=== PATIENT | female | born 1960 | race Caucasian/White ===

== ENCOUNTER 2016-08-31 14:10 | Emergency (ER) | payer OTHER ==
[~2016-08-31] VITALS: Ht 162.6 cm; Wt 102.0 kg
[2016-08-31 14:13] VITALS: BP 173/96; PULSE 76; RESP 20; TEMP 98; O2SAT 98
--- NOTE | 2016-08-31 14:17 | PD ---
Physical Exam Time Seen by Provider: 14:14 Narrative 56 yo white female presents with L leg pain for four days, seen at [facility], sent here to rule out dvt. VSS. Seen at triage desk, awaiting bed placement. Data Data Last Documented VS Vital Signs Date Time Temp Pulse Resp B/P Pulse Ox O2 Delivery O2 Flow Rate FiO2 08/31/16 14:13 98.0 76 20 173/96 98 Room Air MDM Medical Record Reviewed: Yes Supervised Visit with BAMBI: Yes Adam East Aug 31, 2016 14:17
--- NOTE | 2016-08-31 14:44 | PD ---
HPI Chief Complaint: Musculoskeletal Complaint Time Seen by Provider: 14:20 Travel History International Travel<30 days: No Contact w/Intl Traveler<30days: No Traveled to known affect area: No History of Present Illness HPI The patient is a 56-year-old female who presents emergency department for leg pain. The patient is a 4 day history of left-sided leg pain is located mostly in the left hip and left inguinal/groin region. The pain is worse with abduction and flexion of the left hip. The patient was seen at her physician's office earlier today who referred her to the emergency department for an ultrasound rule out DVT. The patient denies any recent prolonged travel, hospitalizations, surgeries, or history of DVT. The patient also notes an intermittent history of leg cramps the last several months, states she stands for several hours during the day. The pain is worse with movement, slightly alleviated at rest, there is no known trauma to the left lower extremity. The patient denies any associated back pain, nausea, vomiting, abdominal pain, or change in bowel habits. PFSH Social History Tobacco Use: No Allergies-Medications (Allergen,Severity, Reaction): Coded Allergies: Aspirin (Verified Allergy, Severe, 08/31/16) Penicillin (Verified Allergy, Severe, 08/31/16) Reported Meds & Prescriptions Reported Meds & Active Scripts Active No Active Prescriptions or Reported Medications Review of Systems Except as stated in HPI: all other systems reviewed are Neg General / Constitutional: No: Fever Cardiovascular: No: Chest Pain or Discomfort Respiratory: No: Shortness of Breath Gastrointestinal: No: Nausea, Vomiting, Abdominal Pain Musculoskeletal: Positive: Pain, No: Limited ROM, Edema Neurologic: No: Paresthesia, Sensory Disturbance Physical Exam Narrative GENERAL: Awake, alert, pleasant 56-year-old female who appears her stated age and is in no acute respiratory distress. SKIN: Focused skin assessment warm/dry. HEAD: Atraumatic. Normocephalic. EYES: No injection or drainage. NECK: Trachea midline. No JVD. GASTROINTESTINAL: Abdomen soft, non-tender, nondistended. No rebound tenderness. MUSCULOSKELETAL: Patient has mild tenderness to palpation the left inguinal crease, resistance with flexion of the hip and abduction exacerbates the pain. Positive dorsalis pedal pulse. Full range of motion with flexion extension of the hips and knees bilaterally. Negative Homans sign. No tenderness over the left calf or left popliteal fossa. NEUROLOGICAL: Awake and alert. No obvious cranial nerve deficits. Motor grossly within normal limits. Normal speech. Sensation is intact bilaterally on the lower extremities. PSYCHIATRIC: Appropriate mood and affect; insight and judgment normal. Data Data Last Documented VS Vital Signs Date Time Temp Pulse Resp B/P Pulse Ox O2 Delivery O2 Flow Rate FiO2 08/31/16 17:30 68 20 147/77 94 Room Air 08/31/16 14:13 98.0 Orders Us Leg Venous Doppler (08/31/16 ) Basic Metabolic Panel (Bmp) (08/31/16 14:38) Complete Blood Count With Diff (08/31/16 14:38) Pelvis, Ap Only (Routine) (08/31/16 ) Ketorolac Inj (Toradol Inj) (08/31/16 14:45) Labs Laboratory Tests Test 08/31/16 14:50 White Blood Count 8.2 TH/MM3 Red Blood Count 5.02 MIL/MM3 Hemoglobin 14.6 GM/DL Hematocrit 42.4 % Mean Corpuscular Volume 84.6 FL Mean Corpuscular Hemoglobin 29.0 PG Mean Corpuscular Hemoglobin 34.3 % Concent Red Cell Distribution Width 13.3 % Platelet Count 213 TH/MM3 Mean Platelet Volume 7.3 FL Neutrophils (%) (Auto) 71.4 % Lymphocytes (%) (Auto) 20.1 % Monocytes (%) (Auto) 6.5 % Eosinophils (%) (Auto) 1.7 % Basophils (%) (Auto) 0.3 % Neutrophils # (Auto) 5.9 TH/MM3 Lymphocytes # (Auto) 1.7 TH/MM3 Monocytes # (Auto) 0.5 TH/MM3 Eosinophils # (Auto) 0.1 TH/MM3 Basophils # (Auto) 0.0 TH/MM3 CBC Comment DIFF FINAL Differential Comment Sodium Level 139 MEQ/L Potassium Level 4.6 MEQ/L Chloride Level 105 MEQ/L Carbon Dioxide Level 26.2 MEQ/L Anion Gap 8 MEQ/L Blood Urea Nitrogen 14 MG/DL Creatinine 0.60 MG/DL Estimat Glomerular Filtration 104 ML/MIN Rate Random Glucose 96 MG/DL Calcium Level 8.7 MG/DL MDM Medical Decision Making Medical Screen Exam Complete: Yes Emergency Medical Condition: Yes Medical Record Reviewed: Yes Interpretation(s) Laboratory Tests Test 08/31/16 14:50 White Blood Count 8.2 TH/MM3 Red Blood Count 5.02 MIL/MM3 Hemoglobin 14.6 GM/DL Hematocrit 42.4 % Mean Corpuscular Volume 84.6 FL Mean Corpuscular Hemoglobin 29.0 PG Mean Corpuscular Hemoglobin 34.3 % Concent Red Cell Distribution Width 13.3 % Platelet Count 213 TH/MM3 Mean Platelet Volume 7.3 FL Neutrophils (%) (Auto) 71.4 % Lymphocytes (%) (Auto) 20.1 % Monocytes (%) (Auto) 6.5 % Eosinophils (%) (Auto) 1.7 % Basophils (%) (Auto) 0.3 % Neutrophils # (Auto) 5.9 TH/MM3 Lymphocytes # (Auto) 1.7 TH/MM3 Monocytes # (Auto) 0.5 TH/MM3 Eosinophils # (Auto) 0.1 TH/MM3 Basophils # (Auto) 0.0 TH/MM3 CBC Comment DIFF FINAL Differential Comment Sodium Level 139 MEQ/L Potassium Level 4.6 MEQ/L Chloride Level 105 MEQ/L Carbon Dioxide Level 26.2 MEQ/L Anion Gap 8 MEQ/L Blood Urea Nitrogen 14 MG/DL Creatinine 0.60 MG/DL Estimat Glomerular Filtration 104 ML/MIN Rate Random Glucose 96 MG/DL Calcium Level 8.7 MG/DL Last Impressions Pelvis X-Ray 08/31/16 0000 Signed Impressions: Service Date/Time: Wednesday, August 31, 2016 15:18 - CONCLUSION: No acute pelvis abnormality is identified. There is osteoarthritis of the hip joints bilaterally, left worse than right. Kaveh Powell MD Lower Extremity Ultrasound 08/31/16 0000 Signed Impressions: Service Date/Time: Wednesday, August 31, 2016 17:01 - CONCLUSION: Normal examination. Cruz Azar MD Differential Diagnosis Differential diagnosis includes hip strain, hip sprain, DVT, femoral hernia, radiculopathy, pelvic rami fracture, hypokalemia, claudication. Narrative Course Ultrasound of the left lower extremity was ordered. BMP and CBC were sent to lab. Pelvic AP was ordered. The patient was administered Toradol 30 mg intravenously for pain. X-ray reveals osteoarthritis of the hips bilaterally, left greater than the right. Laboratory evaluation is unremarkable. Ultrasound was negative for DVT. The patient will be treated with anti- inflammatories and muscle relaxers. She is advised to follow-up with her primary physician for possible evaluation by physical therapy and if symptoms persist orthopedics. Diagnosis Primary Impression: Hip pain, left Patient Instructions: General Instructions Additional Instructions: Medications as directed. Please provide the patient a copy of her ultrasound results, x-ray results, and lab results at discharge. Follow-up with her primary physician, you may benefit from evaluation by physical therapy and/or orthopedics if symptoms persist. Med/Other Pt SpecificInfo: Prescription(s) given Scripts Orphenadrine ER 12 HR (Orphenadrine CR)100 Mg Ztz227 Mg PO Q12HR #20 TAB Ref 0 Prov:Tank Walton MD 08/31/16 Naproxen (Naprosyn)500 Mg Cex015 Mg PO BID #20 TAB Ref 0 Prov:Tank Walton MD 08/31/16 Disposition: 01 DISCHARGE HOME Condition: Stable Tank Walton MD Aug 31, 2016 14:44
[2016-08-31] MEDS ORDERED: KETOROLAC TROMETHAMINE 30 MG/ML (IVP) VIAL IV PUSH ONE (14:45)
[2016-08-31 15:09] LABS: AUTOMATED NEUTROPHIL # 5.9 TH/MM3 (1.8-7.7); BASOPHIL % 0.3 % (0.0-2.0); EOSINOPHIL # 0.1 TH/MM3 (0-0.4); EOSINOPHIL % 1.7 % (0.0-4.0); HEMATOCRIT 42.4 % (35.0-46.0); HEMO FLAGS DIFF FINAL; LYMPH % 20.1 % (9.0-44.0); LYMPHOCYTE # 1.7 TH/MM3 (1.0-4.8); MEAN CELL VOLUME 84.6 FL (80.0-100.0); MEAN CORPUSCULAR HGB CONC 34.3 % (32.0-36.0); MONO % 6.5 % (0.0-8.0); NEUT % 71.4 % (16.0-70.0); PLATELET COUNT 213 TH/MM3 (150-450); RED BLOOD COUNT 5.02 MIL/MM3 (4.00-5.30); RED CELL DISTRIBUTION WIDTH 13.3 % (11.6-17.2); WHITE BLOOD COUNT 8.2 TH/MM3 (4.0-11.0)
[2016-08-31 15:29] LABS: BICARBONATE 26.2 MEQ/L (21.0-32.0)
[2016-08-31 15:30] VITALS: BP 170/80; PULSE 74; RESP 16; O2SAT 98
--- NOTE | 2016-08-31 15:31 | RADRPT ---
EXAM DATE/TIME: 08/31/2016 15:18 [facility] COMPARISON: No previous studies available for comparison. INDICATIONS : Left side pelvic pain, no known trauma MEDICAL HISTORY : None. SURGICAL HISTORY : None. ENCOUNTER: Initial ACUITY: 1 day PAIN SCORE: 8/10 LOCATION: Bilateral pelvis FINDINGS: AP view of the pelvis demonstrates no fracture or dislocation. There is joint space narrowing of the hip joints bilaterally, left greater than right, with mild subchondral sclerosis and subchondral cyst ic change in the adjacent acetabulum. Sacroiliac joints demonstrate no acute finding. No soft tissue abnormality or radiopaque foreign body is seen. CONCLUSION: No acute pelvis abnormality is identified. There is osteoarthritis of the hip joints bilaterally, lef t worse than right. Kaveh Powell MD on August 31, 2016 at 15:28 Board Certified Radiologist. This report was verified electronically.
[2016-08-31 15:35] LABS: POTASSIUM 4.6 MEQ/L (3.5-5.1)
[2016-08-31 16:30] VITALS: PULSE 64; RESP 15; O2SAT 97
[2016-08-31 17:30] VITALS: BP 147/77; PULSE 68; RESP 20; O2SAT 94
--- NOTE | 2016-08-31 17:51 | RADRPT ---
EXAM DATE/TIME: 08/31/2016 17:01 [facility] COMPARISON: No previous studies available for comparison. INDICATIONS : Left leg pain. MEDICAL HISTORY : Left leg pain. SURGICAL HISTORY : Tubal ligation. ENCOUNTER: Initial ACUITY: 4 - 6 days PAIN SCORE: 1/10 LOCATION: Left leg. TECHNIQUE: Venous ultrasound of the leg was performed from the inguinal ligament to the proximal calf. Real-joel e, color Doppler and spectral tracing, compression and augmentation techniques were used. FINDINGS: There is normal compressibility of the deep venous system from the inguinal region to the proximal ca lf. No echogenic clot is seen in the lumen of the common femoral, femoral, popliteal, and posterior tibial veins. There is a normal response of the venous system to proximal and distal augmentation an d respiration. CONCLUSION: Normal examination. Cruz Azar MD on August 31, 2016 at 17:49 Board Certified Radiologist. This report was verified electronically.
[2016-08-31] MEDS ORDERED: NAPR500 PO (18:19)
[2016-08-31] MEDS ORDERED: ORPH100T99 PO (18:19)
== END 2016-08-31 18:45 | disposition home or self-care (01) ==
LOC: NEPE 14:10
DX: M25.552 Pain in left hip (principal)
CPT/HCPCS: 72170; 80048; 85025; 93971; 96374; 99284; J1885

== ENCOUNTER → 2017-01-14 | Outpatient (CLI) | payer OTHER ==
[~2017-01-14] MED LIST: ASPI81CH CHEW; HYDR-3580 PO; MULT1TAB64 PO; NAPR500 PO; ORPH100T99 PO
[2017-01-14 09:04] LABS: HEMATOCRIT 43.5 % (35.0-46.0); MEAN CELL VOLUME 86.8 FL (80.0-100.0); MEAN CORPUSCULAR HEMOGLOBIN 28.9 PG (27.0-34.0); MEAN CORPUSCULAR HGB CONC 33.4 % (32.0-36.0); PLATELET COUNT 221 TH/MM3 (150-450); RED BLOOD COUNT 5.02 MIL/MM3 (4.00-5.30); RED CELL DISTRIBUTION WIDTH 13.3 % (11.6-17.2); REVIEW FLAG FINAL; WHITE BLOOD COUNT 5.2 TH/MM3 (4.0-11.0)
[2017-01-14 09:08] LABS: APTT (PATIENT) 25.1 SEC (24.3-30.1); PROTHROMBIN TIME - PATIENT 10.6 SEC (9.8-11.6)
[2017-01-14 09:40] LABS: BICARBONATE 28.1 MEQ/L (21.0-32.0); POTASSIUM 4.5 MEQ/L (3.5-5.1)
[2017-01-14 10:27] LABS: BLOOD, URINE NEG (NEG); GLUCOSE,URINE NEG (NEG); KETONE, URINE NEG (NEG); MUCUS URINE FEW /lpf (OCC); NITRITE,URINE NEG (NEG); SQUAMOUS EPITHELIAL CELL URINE <1 /hpf (0-5); URINE COLOR LIGHT-YELLOW (YELLW/STRAW)
[2017-01-14 10:28] LABS: COMMENT (UR) CATH-CULT NOT IND; CULTURE IF INDICATED CATH CULTURE NOT IND
--- NOTE | 2017-01-18 13:08 | EKG ---
Date Performed: 01/14/2017 Time Performed: 09:29:29 PTAGE: 56 years EKG: SINUS BRADYCARDIA RIGHT BUNDLE BRANCH BLOCK ABNORMAL ECG NO PREVIOUS TRACING DOCTOR: Negrita Santos Interpretating Date/Time 01/18/2017 13:05:34
== END ==
LOC: CPRE 08:19
PROVIDERS: ATTEND Orthopaedic Surgery
DX: Z01.810 Encounter for preprocedural cardiovascular examination (principal); Z01.812 Encounter for preprocedural laboratory examination; M16.12 Unilateral primary osteoarthritis, left hip; M79.609 Pain in unspecified limb; R00.1 Bradycardia, unspecified; I45.10 Unspecified right bundle-branch block
CPT/HCPCS: 36415; 80048; 81001; 85027; 85610; 85730; 93005

== ENCOUNTER 2017-01-25 05:20 | Inpatient (IN) | payer OTHER ==
[~2017-01-25] VITALS: Ht 160 cm; Wt 99.1 kg
[~2017-01-25 05:20] MED LIST changes: -ASPI81CH CHEW; -HYDR-3580 PO
[2017-01-25] MEDS ORDERED: SODIUM CHLORID 0.9% 500 ML IV PRN (05:45)
[2017-01-25] MEDS ORDERED: METOPROLOL TARTRATE 25 MG TAB PO PRN (05:45)
[2017-01-25] MEDS ORDERED: LACTATED RINGER'S 1000 ML IV PRN (05:45)
[2017-01-25] MEDS ORDERED: CHLORHEXIDINE GLUCONATE 2 % 1 PACK (2 CLOTHS) TOPICAL PRN (05:45)
[2017-01-25] MEDS ORDERED: CHLORHEXIDINE GLUCONATE 4% SOLN 120 ML BTL TOPICAL SCH (05:45)
[2017-01-25] MEDS ORDERED: INSULIN HUMAN REGULAR 1,000 UNITS/10 ML VIAL SQ PRN (05:45)
[2017-01-25] MEDS ORDERED: POVIDONE IODINE 5% (ANTISEPSIS KIT) 4 APPLICATIONS EACH NARE PRN (05:45)
[2017-01-25] MEDS ORDERED: GENTAMICIN SULFATE 80 MG/2 ML VIAL ONE (06:03)
[2017-01-25] MEDS ORDERED: ACETAMINOPHEN 1000 MG/100 ML 100 ML IV ONE (06:30)
[2017-01-25] MEDS ORDERED: MIDAZOLAM HCL 2 MG/2 ML VIAL ONE (06:30)
[2017-01-25] MEDS ORDERED: DEXAMETHASONE SOD PHOS 4 MG/ML VIAL ONE (06:31)
[2017-01-25] MEDS ORDERED: FAMOTIDINE 20 MG/2 ML VIAL ONE (06:31)
[2017-01-25] MEDS ORDERED: ceFAZolin 2 GM PREMIX 50 ML ONE (06:31)
[2017-01-25] MEDS ORDERED: EXPAREL PERI-ARTICULAR INJECTION (TOTAL VOL. 60 ML) P-ARTICULR SCH ×2 (07:00)
[2017-01-25] MEDS ORDERED: TRANEXAMIC ACID IV SCH ×2 (07:00→10:00)
[2017-01-25] MEDS ORDERED: SODIUM CHLORIDE 0.9% IV SCH ×2 (07:00→10:00)
--- NOTE | 2017-01-25 09:29 | HHI.FF ---
Face to Face Verification Diagnosis: (1) Status post total replacement of left hip Physical Therapy Hip: Total hip, Protocol: Left, Posterior hip precautions, Progress to weight bearing Canvas Knee Splint: When in bed & 2 pillows btw thighs Left LE Weight Bearing: WB as tolerated Left LE Range of Motion: Active ROM Nursing Nursing: Dressing changes Dressing Changes: Daily dressing change, Coverderm/Primapore Additional Instructions Remove steristrips on postop day 14. I have seen patient Kayli Ortiz on 01/25/17. My clinical findings support the need for the requested home health care services because: Ltd mobility - disease progression Limited ability to care for self High risk of falls I certify that my clinical findings support that this patient is homebound because: Post-op weakness Unsteady gait/balance Unsafe to leave home unassisted Miguel Friend MD (Charles) Jan 25, 2017 09:29
[2017-01-25] MEDS ORDERED: SODIUM CHLORIDE 0.9% FLUSH 5 ML FLUSH IVF PRN (09:30)
[2017-01-25] MEDS ORDERED: ZOLPIDEM TARTRATE 5 MG TAB PO PRN (09:30)
[2017-01-25] MEDS ORDERED: ACETAMINOPHEN/HYDROcodone 325 MG/7.5 MG TAB PO PRN (09:30)
[2017-01-25] MEDS ORDERED: MAGNESIUM HYDROXIDE SUSP 30 ML CUP PO PRN (09:30)
[2017-01-25] MEDS ORDERED: ONDANSETRON HCL 4 MG/2 ML VIAL IVP PRN (09:30)
[2017-01-25] MEDS ORDERED: BISACODYL 10 MG SUPP RECTAL PRN (09:30)
[2017-01-25] MEDS ORDERED: TRANEXAMIC ACID INJ 0 MG in SODIUM CHLORIDE 0.9% INJ 100 ML IV SCH (09:30)
[2017-01-25] MEDS ORDERED: MORPHINE SULFATE 8 MG/ML INJ IV PUSH PRN (09:30)
[2017-01-25] MEDS ORDERED: Post-op Orders (for Pharmacy) MISC XX ONE (09:30)
[2017-01-25] MEDS ORDERED: *morphine SULFATE 8 MG/ML PERIprocedure ONLY ONE ×2 (09:50→10:25)
[2017-01-25] MEDS: LACTATED RINGER'S 1000 ML INJ 1,000 ML IV SCH ×2 (10:10→21:31)
--- NOTE | 2017-01-25 11:17 | MP ---
cc: Miguel LAM. DATE OF SURGERY 01/25/2017 PREOPERATIVE DIAGNOSIS Primary osteoarthritis left hip. POSTOPERATIVE DIAGNOSIS Primary osteoarthritis left hip. OPERATION PERFORMED Left total hip arthroplasty with [place] prosthesis. SURGEON Miguel Lam MD ANESTHESIA General endotracheal with supplemental local. INDICATIONS AND FINDINGS This 56-year-old woman has had over five years of left hip pain which has progressively worsened over the past four months to the point that she is unable to continue doing activities of daily living functionally. She has a limited distance ambulating and requires external support. She has pain when moving the hip and has difficulty with activities of daily living. She has not responded to conservative measures including anti-inflammatory agents, analgesics, exercise, ambulatory aids and weight loss. Physical findings showed limited range of motion with tenderness on motion. She walks with an antalgic gait. X-rays show loss of articular cartilage to [id number] with degenerative cysts and osteophytes. Operative findings showed severe osteoarthritis with loss of articular cartilage to expose subchondral bone with subchondral sclerosis on the acetabular and femoral side. There are osteophytes as well. PROSTHESIS USED Liang prosthesis with the femoral component being an Accolade II size 132 neck angle x size 5 with a Biolox Delta ceramic head size 32 and -4 mm neck length. The acetabular component was a Tritanium Cluster Cup with a single additional screw, size 48 mm in diameter. The liner was a Trident X3 polyethylene liner, 0-degree, 32-mm inner diameter. PROCEDURE The patient was brought to the clean-air operating suite and a general endotracheal anesthetic was administered. She was placed in a lateral position on a Biomet lateral positioner with the left hip up. She was then prepped with alcohol, Hibiclens and Chloraprep and draped in the usual manner with the hip draped free. An appropriate time-out procedure was carried out. Local anesthesia was administered in the incision site with Exparel. The incision was then made from the posterior lateral tip of the greater trochanter superiorly and proximally approximately 15 cm. The incision was deepened through the subcutaneous tissues to the gluteus fascia which was exposed and longitudinally incised in line with its fibers. Dissection was then carried out through this and a Charnley retractor inserted. The piriformis was identified and it along with the obturator were released from the posterior aspect of the greater trochanter and reflected. A capsular incision was then made from the acetabulum down to the femoral neck and across and down the femoral neck without disturbing the remaining external rotators. The hip was dislocated. The femoral neck was transected. The femoral head was removed. Femoral preparation was initiated with a box osteotome, followed by a curet for identifying the canal. Reaming was then started with a size 0 reamer and went up to a size 5. The size 5 was seated appropriately. Calcar planing was completed. The hip was irrigated. The hip was repositioned and attention directed to the acetabulum. Retractors were placed about the acetabulum. The soft tissues were removed. Reaming started at 43 mm and went in 1-mm increments to 48 mm, deepening to the teardrop. A size 48 mm trial prosthesis was tried first at 47 mm reaming but subsequently to 48 mm reaming. A 48 mm titanium cluster cup was chosen and was impacted into place in appropriate position. A single screw was placed into this. The liner was inserted. Attention was then directed back to the femur. The femoral trial was used for a size 0, followed by a size -4 which appeared to be more appropriate. Further broaching was carried out and this still appeared appropriate. Stability was excellent. The femoral trial and broach were removed. The femoral prosthesis as noted above was impacted into place and seated appropriately. Trial reduction was again carried out with a -4 mm neck length. The trunnion was then cleaned and dried. Prior to completion of this the capsule around the acetabulum and femur were anesthetized with Marcaine with Exparel. The femoral head, which was a Biolox Delta head was placed onto the cleaned and dried trunnion of the femoral component and seated appropriately. The hip was reduced. It was taken through a range of motion which showed excellent stability and mobility. There was no pistoning. The leg lengths appeared appropriate. After the remainder of the Exparel was injected, wound closure then commenced doing a closure of the capsule using a #1 Vicryl running locked suture. The piriformis and obturator conjoined tendon was then repaired along with capsule to the posterior aspect of the greater trochanter with transosseous sutures. This was reinforced at the edge with further sutures. The suture was #1 Vicryl with a Krackow technique. The sciatic nerve was identified again at the conclusion of the procedure. It had been protected throughout the procedure. The gluteus fascia was then repaired with #1 Vicryl interrupted [id number] sutures. The subcutaneous tissues were closed with 2-0 Vicryl interrupted simple sutures with buried knots. The skin was closed with a continuous subcuticular closure of 4-0 Monocryl. The wound was dressed with Steri-Strips followed by dry dressing, ABD pad and Medipore compression dressing. The patient was then placed into the knee immobilizer and transferred to the recovery room in satisfactory condition having tolerated the procedure well. COUNTS Counts were correct. SPECIMEN None. ESTIMATED BLOOD LOSS 350 mL. MD COOPER Britton/RADHA /9:39 AM /10:57 AM
--- NOTE | 2017-01-25 11:24 | RADRPT ---
EXAM DATE/TIME: 01/25/2017 09:46 [facility] COMPARISON: No previous studies available for comparison. INDICATIONS : Total left hip replacement. MEDICAL HISTORY : None. SURGICAL HISTORY : Tubal ligation. ENCOUNTER: Initial ACUITY: 1 day PAIN SCORE: 3/10 LOCATION: Left Hip FINDINGS: Changes of left hip arthroplasty now noted, appears intact and normally aligned. CONCLUSION: Total left hip arthroplasty with expected radiographic appearance. No evidence of an acute complicati on. Kaveh Sierra MD on January 25, 2017 at 11:21 Board Certified Radiologist. This report was verified electronically.
[2017-01-25 12:00] VITALS: BP 106/67; PULSE 82; RESP 20; TEMP 96.8; O2SAT 96
[2017-01-25] MEDS ORDERED: ePHEDrine/NS 25 MG/5 ML SYR IV ONE (12:00)
[2017-01-25] MEDS ORDERED: NEOSTIGMINE 3 MG/3 ML SYR IV ONE (12:00)
[2017-01-25] MEDS ORDERED: PROPOFOL 200 MG/20 ML AMP IV ONE (12:00)
[2017-01-25] MEDS ORDERED: ONDANSETRON HCL 4 MG/2 ML VIAL IV PUSH ONE (12:00)
[2017-01-25] MEDS ORDERED: LACTATED RINGER'S 1000 ML INJ 1,000 ML IV ONE (12:00)
[2017-01-25 12:22] VITALS: O2SAT 98
--- NOTE | 2017-01-25 13:02 | PD.CONS ---
HPI Service [facility] Consult Requested By DR Miguel LAM ORTHO Reason for Consult MEDICAL MANAGEMENT Primary Care Physician Carmen Crews DO Diagnoses: (1) Status post total replacement of left hip (2) Primary osteoarthritis of left hip (3) Hip pain, left History of Present Illness 46-year-old female. Who underwent left total hip replacement today for severe osteoarthritis of the left hip with Dr. Lam. Seen postoperatively tolerated the procedure well. Patient's past medical history is significant for osteoarthritis had a history of tobacco abuse in the past as well as history of tubal ligation. Is currently awake and alert and denying any issues at this moment other than some pain in her left hip Review of Systems Constitutional: DENIES: Diaphoretic episodes, Fatigue, Fever, Weight gain, Weight loss, Chills, Dizziness Endocrine: DENIES: Heat/cold intolerance Eyes: DENIES: Blurred vision, Diplopia, Eye inflammation, Eye pain, Vision loss Ears, nose, mouth, throat: DENIES: Tinnitus, Hearing loss, Vertigo, Nasal discharge Respiratory: DENIES: Apneas, Cough, Snoring, Wheezing Cardiovascular: DENIES: Chest pain, Palpitations, Syncope, Dyspnea on Exertion Gastrointestinal: DENIES: Abdominal pain, Black stools, Bloody stools, Constipation Genitourinary: DENIES: Abnormal vaginal bleeding, Dysmenorrhea Musculoskeletal: COMPLAINS OF: Joint pain, DENIES: Muscle aches, Stiffness, Joint Swelling, Back pain Integumentary: DENIES: Abnormal pigmentation, Pruritus Hematologic/lymphatic: DENIES: Bruising, Lymphadenopathy Immunologic/allergic: DENIES: Eczema, Urticaria Neurologic: DENIES: Abnormal gait, Headache, Localized weakness, Paresthesias Psychiatric: DENIES: Anxiety, Confusion Past Family Social History Allergies: Coded Allergies: aspirin (Unverified Allergy, Severe, 01/25/17) penicillin G (Unverified Allergy, Severe, 01/25/17) Past Medical History OSTEOARTHRITIS Past Surgical History TUBAL LIGATION Reported Medications Reported Meds & Active Scripts Active Orphenadrine CR (Orphenadrine Citrate) 100 Mg Tab 100 Mg PO Q12HR Naprosyn (Naproxen) 500 Mg Tab 500 Mg PO BID Reported Centrum Silver Men Tablet (Multivit-Min/FA/Lycopen/Lutein) 1 Each Tablet 1 Tab PO DAILY Active Ordered Medications Current Medications Lactated Ringer's 1,000 ml @ 30 mls/hr Q24H PRN IV SEE LABEL COMMENTS Last administered on 01/25/17 05:50; Start 01/25/17 at 05:45; Stop 01/25/17 at 10:07; Status DC Sodium Chloride 500 ml @ 30 mls/hr [id number] PRN IV SEE LABEL COMMENTS; Start 01/25/17 at 05:45; Stop 01/25/17 at 10:07; Status DC Metoprolol Tartrate (Lopressor) 25 mg [employer]OMC[employer] SCR[employer]ER PRN PO SEE LABEL COMMENTS; Start 01/25/17 at 05:45; Stop 01/28/17 at 05:44 Povidone Iodine (Betadine 5% Antisepsis Kit) 1 applic [employer]OMC[employer] SCRAPER PRN EACH NARE SEE LABEL COMMENTS Last administered on 01/25/17 06:05; Start 01/25/17 at 05:45; Stop 01/28/17 at 05:44 Chlorhexidine Gluconate (Chlorhexidine 2% Cloth) 3 pack [employer]OM[employer] SCR[employer]ER PRN TOPICAL SEE LABEL COMMENTS Last administered on 01/25/17 05:30; Start 01/25/17 at 05:45; Stop 01/28/17 at 05:44 Insulin Human Regular (NovoLIN R INJ) See Protocol Table ... BR[employer]OMC[employer] SCRAPER PRN SQ SEE PROTOCOL TABLE; Start 01/25/17 at 05:45; Stop 01/28/17 at 05:44 Chlorhexidine Gluconate (Hibiclens 4% Top Soln) 1 applic ONCE TOPICAL ; Start at 05:45; Stop 01/28/17 at 05:44 Tranexamic Acid 991 mg/Sodium Chloride 109.91 ml @ 200 mls/ hr ONCE IV Last administered on 01/25/17 06:59; Start 01/25/17 at 07:00; Stop 01/25/17 at 13:00 Tranexamic Acid 991 mg/Sodium Chloride 109.91 ml @ 200 mls/ hr ONCE IV Last administered on 01/25/17 10:17; Start 01/25/17 at 10:00; Stop 01/25/17 at 11:00; Status DC Bupivacaine Liposome 20 ml/ Sodium Chloride 60 ml @ 120 mls/hr ONCE P-ARTICULR ; Start 01/25/17 at 07:00; Stop 01/25/17 at 13:00 Gentamicin Sulfate (Gentamicin Inj) 240 mg STK-MED ONCE .ROUTE Last administered on 01/25/17 07:35; Start 01/25/17 at 06:03; Stop 01/25/17 at 06:04; Status DC Acetaminophen 100 ml @ As Directed STK-MED ONCE IV ; Start 01/25/17 at 06:30; Stop 01/25/17 at 06:31; Status DC Midazolam HCl (Versed Inj) 2 mg STK-MED ONCE .ROUTE ; Start 01/25/17 at 06:30; Stop 01/25/17 at 06:31; Status DC Fentanyl Citrate (fentaNYL INJ) 300 mcg STK-MED ONCE .ROUTE ; Start 01/25/17 at 06:30; Stop 01/25/17 at 06:31; Status DC Famotidine (Pepcid Inj) 20 mg STK-MED ONCE .ROUTE ; Start 01/25/17 at 06:31; Stop 01/25/17 at 06:32; Status DC Dexamethasone Sodium Phosphate (Decadron Inj) 4 mg STK-MED ONCE .ROUTE ; Start 01/25/17 at 06:31; Stop 01/25/17 at 06:32; Status DC Cefazolin Sodium/ Dextrose 50 ml @ As Directed STK-MED ONCE .ROUTE Last administered on 01/25/17 06:59; Start 01/25/17 at 06:31; Stop 01/25/17 at 06:32; Status DC Fentanyl Citrate (fentaNYL INJ) 100 mcg STK-MED ONCE .ROUTE ; Start 01/25/17 at 08:45; Stop 01/25/17 at 08:46; Status DC Lactated Ringer's 1,000 ml @ 80 mls/hr [id number] IV Last administered on 10:10; Start 01/25/17 at 09:20 IV Flush (NS Flush) 2 ml UNSCH PRN IVF FLUSH AFTER USING IV ACCESS; Start at 09:30 IV Flush (NS Flush) 2 ml BID IVF ; Start 01/25/17 at 21:00 Cefazolin Sodium 1000 mg/Sodium Chloride 100 ml @ 200 mls/hr Q6H IV ; Start 01/25/17 at 13:00; Stop 01/26/17 at 01:29 Miscellaneous Information (Post-op Orders (for Pharmacy)) STAT ONCE XX ; Start 01/25/17 at 09:30; Stop 01/25/17 at 09:31; Status UNV Morphine Sulfate (Morphine Inj) 4 mg Q3H PRN IV PUSH BREAKTHROUGH PAIN; Start 01/25/17 at 09:30; Status UNV Acetaminophen/ Hydrocodone Bitart ([place] 7.5-325 Mg) 1 tab Q4H PRN PO PAIN LESS THAN 5 ON SCALE; Start 01/25/17 at 09:30 Acetaminophen/ Hydrocodone Bitart ([place] 7.5-325 Mg) 2 tab Q4H PRN PO PAIN SCALE 5 TO 10; Start 01/25/17 at 09:30; Status UNV Ketorolac Tromethamine (Toradol Inj) 15 mg Q6H IVP ; Start 01/25/17 at 09:30; Stop 01/27/17 at 03:31; Status UNV Tranexamic Acid / Sodium Chloride 100 ml @ 200 mls/hr UNSCH IV ; Start 01/25/17 at 09:30; Stop 01/25/17 at 10:07; Status DC Ondansetron HCl (Zofran Inj) 4 mg Q6H PRN IVP NAUSEA OR VOMITING; Start at 09:30; Status UNV Docusate Sodium (Colace) 100 mg BID PO ; Start 01/26/17 at 21:00 Zolpidem Tartrate (Ambien) 5 mg HS PRN PO SLEEP; Start 01/25/17 at 09:30 Bisacodyl (Dulcolax Supp) 10 mg DAILY PRN [place] CONSTIPATION; Start 01/25/17 at 09: 30; Status UNV Magnesium Hydroxide (Milk Of Magnesia Liq) 30 ml DAILY PRN PO MILD TO MODERATE CONSTIPATION; Start 01/25/17 at 09:30 Aspirin (Ecotrin Ec) 81 mg BID PO ; Start 01/25/17 at 21:00; Status UNV Orphenadrine Citrate (Norflex Cr) 100 mg Q12HR PO ; Start 01/25/17 at 21:00; Status UNV Non-Formulary Medication 1 tab DAILY PO ; Start 01/26/17 at 09:00; Status UNV Morphine Sulfate (*morphine INJ PERIprocedure ONLY) 8 mg STK-MED ONCE .ROUTE Last administered on 01/25/17 09:51; Start 01/25/17 at 09:50; Stop 01/25/17 at 09: 51; Status DC Morphine Sulfate (*morphine INJ PERIprocedure ONLY) 8 mg STK-MED ONCE .ROUTE Last administered on 01/25/17 10:26; Start 01/25/17 at 10:25; Stop 01/25/17 at 10: 26; Status DC Family History Diabetes hypertension and heart disease Social History hISTORY OF TOBACCO QUIT OVER 30 YEARS AGO OCCASIONAL ALCOHOLIC BEVERAGE Denies any illicit Physical Exam Vital Signs Vital Signs Date Time Temp Pulse Resp B/P (MAP) Pulse Ox O2 Delivery O2 Flow Rate FiO2 01/25/17 12:22 98 21 01/25/17 12:00 96.8 82 20 106/67 (80) 96 01/25/17 10:30 97.8 80 12 124/69 (87) 97 Nasal Cannula 2 01/25/17 10:15 75 14 125/67 (86) 96 Nasal Cannula 2 01/25/17 10:00 86 14 105/55 (72) 97 01/25/17 09:45 96 12 112/56 (74) 100 01/25/17 09:44 97.6 94 12 143/63 (89) 99 Simple Mask 6 01/25/17 05:58 98.6 74 16 141/87 (105) 97 Physical Exam GENERAL: This is a well-nourished, well-developed patient, in no apparent distress. SKIN: No rashes, ecchymoses or lesions. Cool and dry. HEAD: Atraumatic. Normocephalic. No temporal or scalp tenderness. EYES: Pupils equal round and reactive. Extraocular motions intact. No scleral icterus. No injection or drainage. ENT: Nose without bleeding, purulent drainage or septal hematoma. Throat without erythema, tonsillar hypertrophy or exudate. Uvula midline. Airway patent. NECK: Trachea midline. No JVD or lymphadenopathy. Supple, nontender, no meningeal signs. CARDIOVASCULAR: Regular rate and rhythm without murmurs, gallops, or rubs. S1 and S2 no S3-S4 no heave or thrill or rub or gallop RESPIRATORY: Clear to auscultation. Breath sounds equal bilaterally. No wheezes , rales, or rhonchi. GASTROINTESTINAL: Abdomen soft, non-tender, nondistended. No hepato-splenomegaly , or palpable masses. No guarding. MUSCULOSKELETAL: Extremities without clubbing, cyanosis, or edema. No joint tenderness, effusion, or edema noted. No calf tenderness. Negative Homans sign bilaterally. Left hip is dressed NEUROLOGICAL: Awake and alert. Cranial nerves II through XII intact. Motor and sensory grossly within normal limits. Five out of 5 muscle strength in all muscle groups. Normal speech. Insight and judgment is good mood and behaviors appropriate Imaging Last Impressions Hip X-Ray 01/25/17 0920 Signed Impressions: Service Date/Time: Wednesday, January 25, 2017 09:46 - CONCLUSION: Total left hip arthroplasty with expected radiographic appearance. No evidence of an acute complication. Kaveh Sierra MD Assessment and Plan Problem List: (1) Status post total replacement of left hip ICD Code: Z96.642 - Presence of left artificial hip joint (2) Primary osteoarthritis of left hip ICD Code: M16.12 - Unilateral primary osteoarthritis, left hip (3) Hip pain, left ICD Code: M25.552 - Pain in left hip Status: Acute Assessment and Plan Patient is a 56-year-old female. He is status post left total hip arthroplasty today. By surgery pain control and DVT prophylaxis per them History of tubal ligation stable Osteoarthritis continue pain control Obesity weight last recommended DVT and GI prophylaxis A.m. labs will follow throughout the admission for any other issues that may arise Code Status Full code Discussed Condition With DISCUSSED WITH PATIENT AND RN and friends in the room Bjorn Strange DO Jan 25, 2017 13:02
[2017-01-25] MEDS: KETOROLAC TROMETHAMINE 30 MG/ML (IVP) VIAL IVP SCH ×2 (15:34→20:52)
[2017-01-25 16:00] VITALS: BP 114/70; PULSE 73; RESP 21; TEMP 96.2; O2SAT 98
[2017-01-25] MEDS ORDERED: DO NOT ADM ANY ANTICOAGULANT DRUGS PRN (16:15)
[2017-01-25] MEDS: ORPHENADRINE CITRATE 100 MG SUSTAINED RELEASE TAB PO SCH (20:32)
[2017-01-25] MEDS: FAMOTIDINE 20 MG TAB PO SCH (20:32)
[2017-01-25 20:40] VITALS: BP 115/69; PULSE 84; RESP 16; TEMP 97.5; O2SAT 94
[2017-01-25] MEDS: SODIUM CHLORIDE 0.9% FLUSH 5 ML FLUSH IVF SCH (20:42)
[2017-01-25] MEDS: ACETAMINOPHEN/HYDROcodone 325 MG/7.5 MG TAB PO PRN (20:42)
[2017-01-25] MEDS ORDERED: ASPIRIN EC 81 MG TABEC PO SCH (21:00)
[2017-01-25 21:13] VITALS: O2SAT 95
[2017-01-26 00:40] VITALS: BP 111/62; PULSE 90; RESP 16; TEMP 98.8; O2SAT 96
[2017-01-26] MEDS: KETOROLAC TROMETHAMINE 30 MG/ML (IVP) VIAL IVP SCH ×2 (02:34→10:58)
[2017-01-26 05:00] VITALS: BP 106/63; PULSE 72; RESP 16; TEMP 97.2; O2SAT 96
[2017-01-26] MEDS: ACETAMINOPHEN/HYDROcodone 325 MG/7.5 MG TAB PO PRN ×2 (06:00→14:02)
--- NOTE | 2017-01-26 06:55 | PD.ORT.PN ---
Subjective Post Op Day #: 1 Subjective Remarks She is doing well, with minimal pain. She has walked without difficulty to the bathroom. We discussed aspirin allergy: She takes BC Powders and Goody Powders , both of which contain aspirin, on a routine basis. She also takes Naproxen. She was told by her mother that she had an aspirin allergy, so that is what she says. She recalls no reaction. Distance Walked 20 feet, then 80 feet. Objective Vitals Vital Signs Date Time Temp Pulse Resp B/P (MAP) Pulse Ox O2 Delivery O2 Flow Rate FiO2 01/26/17 00:40 98.8 90 16 111/62 (78) 96 01/25/17 21:13 95 01/25/17 20:40 97.5 84 16 115/69 (84) 94 01/25/17 16:00 96.2 73 21 114/70 (85) 98 01/25/17 12:22 98 21 01/25/17 12:00 96.8 82 20 106/67 (80) 96 01/25/17 10:30 97.8 80 12 124/69 (87) 97 Nasal Cannula 2 01/25/17 10:15 75 14 125/67 (86) 96 Nasal Cannula 2 01/25/17 10:00 86 14 105/55 (72) 97 01/25/17 09:45 96 12 112/56 (74) 100 01/25/17 09:44 97.6 94 12 143/63 (89) 99 Simple Mask 6 I/O 01/25/17 01/25/17 01/25/17 01/26/17 01/26/17 01/26/17 07:00 15:00 23:00 07:00 15:00 23:00 Intake Total 1498 ml 480 ml Output Total 350 ml Balance 1148 ml 480 ml Intake Oral 480 ml IV Total 1498 ml Output Estimated Blood Loss 350 ml # Voids 1 # Bowel Movements 0 Imaging Last 24 hours Impressions Hip X-Ray 01/25/17919 Signed Impressions: Service Date/Time: Wednesday, January 25, 2017 09:46 - CONCLUSION: Total left hip arthroplasty with expected radiographic appearance. No evidence of an acute complication. Kaveh Sierra MD Objective Remarks She is sitting up in bed eating breakfast. The dressing is dry and intact. The neurovascular status is intact. Assessment & Plan Ortho Post Op Day #: 1 Problem List: (1) Status post total replacement of left hip ICD Codes: Z96.642 - Presence of left artificial hip joint Status: Acute Assessment and Plan Condition: Good. Orthopaedically stable. DVT prophylaxis: TEDs, sequentials and Xarelto here, with resumption of BC powders at home. Discharge plans: Home with C. Has appointment. Rx [place] 7.5/325. Miguel Friend MD (Charles) Jan 26, 2017 06:55
[2017-01-26 07:50] LABS: AUTOMATED NEUTROPHIL # 8.4 TH/MM3 (1.8-7.7); BASOPHIL % 0.2 % (0.0-2.0); EOSINOPHIL % 0.1 % (0.0-4.0); HEMATOCRIT 34.4 % (35.0-46.0); HEMO FLAGS DIFF FINAL; LYMPH % 11.9 % (9.0-44.0); LYMPHOCYTE # 1.2 TH/MM3 (1.0-4.8); MEAN CELL VOLUME 87.1 FL (80.0-100.0); MEAN CORPUSCULAR HEMOGLOBIN 29.6 PG (27.0-34.0); MONO % 7.3 % (0.0-8.0); NEUT % 80.5 % (16.0-70.0); PLATELET COUNT 196 TH/MM3 (150-450); RED BLOOD COUNT 3.95 MIL/MM3 (4.00-5.30); RED CELL DISTRIBUTION WIDTH 13.2 % (11.6-17.2); WHITE BLOOD COUNT 10.4 TH/MM3 (4.0-11.0)
[2017-01-26] MEDS: FAMOTIDINE 20 MG TAB PO SCH (07:58)
[2017-01-26] MEDS: ORPHENADRINE CITRATE 100 MG SUSTAINED RELEASE TAB PO SCH (07:59)
[2017-01-26 08:00] VITALS: BP 116/70; PULSE 84; RESP 18; TEMP 97.2; O2SAT 100
[2017-01-26] MEDS ORDERED: HYDR-3580 PO (08:40)
[2017-01-26 09:00] VITALS: O2SAT 98
[2017-01-26] MEDS ORDERED: ENOXAPARIN SODIUM 40 MG/0.4 ML SYRINGE SQ SCH (09:00)
[2017-01-26] MEDS: SODIUM CHLORIDE 0.9% FLUSH 5 ML FLUSH IVF SCH (09:00)
[2017-01-26] MEDS ORDERED: [UNRECOGNIZED DRUG - OTHER] PO SCH (09:00)
[2017-01-26] MEDS ORDERED: LYCOPEN PO SCH (09:00)
[2017-01-26] MEDS ORDERED: MULTIVIT MIN PO SCH (09:00)
[2017-01-26] MEDS ORDERED: RIVAROXABAN 10 MG TAB PO SCH (09:00)
[2017-01-26] MEDS ORDERED: MULTIVITAMINS/MINERALS THERAPEUTIC TAB PO SCH (09:00)
[2017-01-26] MEDS ORDERED: LUTEIN PO SCH (09:00)
[2017-01-26 10:34] LABS: HEMOGLOBIN A1a 0.9 %; HEMOGLOBIN A1b 0.8 %; HEMOGLOBIN Ao 86.5 %; HEMOGLOBIN F 0.7 %; HEMOGLOBIN P3 3.6 %
[2017-01-26 12:00] VITALS: BP 102/65; PULSE 76; RESP 18; TEMP 97.9; O2SAT 97
--- NOTE | 2017-01-26 12:14 | HHI.PR ---
Subjective Remarks 46-year-old female. Who underwent left total hip replacement today for severe osteoarthritis of the left hip with Dr. Friend. Seen postoperatively tolerated the procedure well. Patient's past medical history is significant for osteoarthritis had a history of tobacco abuse in the past as well as history of tubal ligation. Is currently awake and alert and denying any issues at this moment other than some pain in her left hip TO BE DCED TO HOME TODAY NO NEW COMPLAINTS NO SOB, NO CHEST PAIN HAS WALKER AT HOME Objective Vitals Vital Signs Date Time Temp Pulse Resp B/P (MAP) Pulse Ox O2 Delivery O2 Flow Rate FiO2 01/26/17 08:00 97.2 84 18 116/70 (85) 100 01/26/17 05:00 97.2 72 16 106/63 (77) 96 01/26/17 00:40 98.8 90 16 111/62 (78) 96 01/25/17 21:13 95 01/25/17 20:40 97.5 84 16 115/69 (84) 94 01/25/17 16:00 96.2 73 21 114/70 (85) 98 01/25/17 12:22 98 21 I/O 01/25/17 01/25/17 01/25/17 01/26/17 01/26/17 01/26/17 06:59 14:59 22:59 06:59 14:59 22:59 Intake Total 1498 ml 480 ml 480 ml Output Total 350 ml Balance 1148 ml 480 ml 480 ml Intake Oral 480 ml 480 ml IV Total 1498 ml Output Estimated Blood Loss 350 ml # Voids 1 2 # Bowel Movements 0 0 Result Diagram: 01/26/17 0552 Other Results Laboratory Tests Test 01/26/17 05:52 White Blood Count 10.4 TH/MM3 Red Blood Count 3.95 MIL/MM3 Hemoglobin 11.7 GM/DL Hematocrit 34.4 % Mean Corpuscular Volume 87.1 FL Mean Corpuscular Hemoglobin 29.6 PG Mean Corpuscular Hemoglobin Concent 34.0 % Red Cell Distribution Width 13.2 % Platelet Count 196 TH/MM3 Mean Platelet Volume 7.2 FL Neutrophils (%) (Auto) 80.5 % Lymphocytes (%) (Auto) 11.9 % Monocytes (%) (Auto) 7.3 % Eosinophils (%) (Auto) 0.1 % Basophils (%) (Auto) 0.2 % Neutrophils # (Auto) 8.4 TH/MM3 Lymphocytes # (Auto) 1.2 TH/MM3 Monocytes # (Auto) 0.8 TH/MM3 Eosinophils # (Auto) 0.0 TH/MM3 Basophils # (Auto) 0.0 TH/MM3 CBC Comment DIFF FINAL Differential Comment Hemoglobin A1c 5.3 % Imaging Last Impressions Hip X-Ray 01/25/17 0920 Signed Impressions: Service Date/Time: Wednesday, January 25, 2017 09:46 - CONCLUSION: Total left hip arthroplasty with expected radiographic appearance. No evidence of an acute complication. Kaveh Sierra MD Objective Remarks GENERAL: This is a well-nourished, well-developed patient, in no apparent distress. SKIN: No rashes, ecchymoses or lesions. Cool and dry. HEAD: Atraumatic. Normocephalic. No temporal or scalp tenderness. EYES: Pupils equal round and reactive. Extraocular motions intact. No scleral icterus. No injection or drainage. ENT: Nose without bleeding, purulent drainage or septal hematoma. Throat without erythema, tonsillar hypertrophy or exudate. Uvula midline. Airway patent. NECK: Trachea midline. No JVD or lymphadenopathy. Supple, nontender, no meningeal signs. CARDIOVASCULAR: Regular rate and rhythm without murmurs, gallops, or rubs. S1 and S2 no S3-S4 no heave or thrill or rub or gallop RESPIRATORY: Clear to auscultation. Breath sounds equal bilaterally. No wheezes , rales, or rhonchi. GASTROINTESTINAL: Abdomen soft, non-tender, nondistended. No hepato-splenomegaly , or palpable masses. No guarding. MUSCULOSKELETAL: Extremities without clubbing, cyanosis, or edema. No joint tenderness, effusion, or edema noted. No calf tenderness. Negative Homans sign bilaterally. Left hip is dressed NEUROLOGICAL: Awake and alert. Cranial nerves II through XII intact. Motor and sensory grossly within normal limits. Five out of 5 muscle strength in all muscle groups. Normal speech. Insight and judgment is good mood and behaviors appropriate Procedures LEFT ANNA ON 9- Medications and IVs Current Medications Lactated Ringer's 1,000 ml @ 30 mls/hr Q24H PRN IV SEE LABEL COMMENTS Last administered on 01/25/17t 05:50; Start 01/25/17 at 05:45; Stop 01/25/17 at 10:07; Status DC Sodium Chloride 500 ml @ 30 mls/hr [id number] PRN IV SEE LABEL COMMENTS; Start 01/25/17 at 05:45; Stop 01/25/17 at 10:07; Status DC Metoprolol Tartrate (Lopressor) 25 mg [employer] PRN PO SEE LABEL COMMENTS; Start 01/25/17 at 05:45; Stop 01/28/17 at 05:44 Povidone Iodine (Betadine 5% Antisepsis Kit) 1 applic [employer] PRN EACH NARE SEE LABEL COMMENTS Last administered on 01/25/17 06:05; Start 01/25/17 at 05:45; Stop 01/28/17 at 05:44 Chlorhexidine Gluconate (Chlorhexidine 2% Cloth) 3 pack [employer] PRN TOPICAL SEE LABEL COMMENTS Last administered on 01/25/17 05:30; Start 01/25/17 at 05:45; Stop 01/28/17 at 05:44 Insulin Human Regular (NovoLIN R INJ) See Protocol Table ... [employer] PRN SQ SEE PROTOCOL TABLE; Start 01/25/17 at 05:45; Stop 01/28/17 at 05:44 Chlorhexidine Gluconate (Hibiclens 4% Top Soln) 1 applic ONCE TOPICAL ; Start at 05:45; Stop 01/28/17 at 05:44 Tranexamic Acid 991 mg/Sodium Chloride 109.91 ml @ 200 mls/ hr ONCE IV Last administered on 01/25/17 06:59; Start 01/25/17 at 07:00; Stop 01/25/17 at 13:00; Status DC Tranexamic Acid 991 mg/Sodium Chloride 109.91 ml @ 200 mls/ hr ONCE IV Last administered on 01/25/17 10:17; Start 01/25/17 at 10:00; Stop 01/25/17 at 11:00; Status DC Bupivacaine Liposome 20 ml/ Sodium Chloride 60 ml @ 120 mls/hr ONCE P-ARTICULR ; Start 01/25/17 at 07:00; Stop 01/25/17 at 13:00; Status DC Gentamicin Sulfate (Gentamicin Inj) 240 mg STK-MED ONCE .ROUTE Last administered on 01/25/17 07:35; Start 01/25/17 at 06:03; Stop 01/25/17 at 06:04; Status DC Acetaminophen 100 ml @ As Directed STK-MED ONCE IV ; Start 01/25/17 at 06:30; Stop 01/25/17 at 06:31; Status DC Midazolam HCl (Versed Inj) 2 mg STK-MED ONCE .ROUTE ; Start 01/25/17 at 06:30; Stop 01/25/17 at 06:31; Status DC Fentanyl Citrate (fentaNYL INJ) 300 mcg STK-MED ONCE .ROUTE ; Start 01/25/17 at 06:30; Stop 01/25/17 at 06:31; Status DC Famotidine (Pepcid Inj) 20 mg STK-MED ONCE .ROUTE ; Start 01/25/17 at 06:31; Stop 01/25/17 at 06:32; Status DC Dexamethasone Sodium Phosphate (Decadron Inj) 4 mg STK-MED ONCE .ROUTE ; Start 01/25/17 at 06:31; Stop 01/25/17 at 06:32; Status DC Cefazolin Sodium/ Dextrose 50 ml @ As Directed STK-MED ONCE .ROUTE Last administered on 01/25/17 06:59; Start 01/25/17 at 06:31; Stop 01/25/17 at 06:32; Status DC Fentanyl Citrate (fentaNYL INJ) 100 mcg STK-MED ONCE .ROUTE ; Start 01/25/17 at 08:45; Stop 01/25/17 at 08:46; Status DC Lactated Ringer's 1,000 ml @ 80 mls/hr [id number] IV Last administered on 10:10; Start 01/25/17 at 09:20 IV Flush (NS Flush) 2 ml UNSCH PRN IVF FLUSH AFTER USING IV ACCESS; Start at 09:30 IV Flush (NS Flush) 2 ml BID IVF Last administered on 01/26/17 09:00; Start 01/25/17 at 21:00 Cefazolin Sodium 1000 mg/Sodium Chloride 100 ml @ 200 mls/hr Q6H IV Last administered on 01/25/17 15:32; Start 01/25/17 at 13:00; Stop 01/25/17 at 18:55; Status DC Miscellaneous Information (Post-op Orders (for Pharmacy)) STAT ONCE XX ; Start 01/25/17 at 09:30; Stop 01/25/17 at 15:26; Status DC Morphine Sulfate (Morphine Inj) 4 mg Q3H PRN IV PUSH BREAKTHROUGH PAIN; Start 01/25/17 at 09:30 Acetaminophen/ Hydrocodone Bitart ([place] 7.5-325 Mg) 1 tab Q4H PRN PO PAIN LESS THAN 5 ON SCALE Last administered on 01/26/17 06:00; Start 01/25/17 at 09:30 Acetaminophen/ Hydrocodone Bitart ([place] 7.5-325 Mg) 2 tab Q4H PRN PO PAIN SCALE 5 TO 10; Start 01/25/17 at 09:30 Ketorolac Tromethamine (Toradol Inj) 15 mg Q6H IVP Last administered on 10:58; Start 01/25/17 at 16:00; Stop 01/27/17 at 10:01 Tranexamic Acid / Sodium Chloride 100 ml @ 200 mls/hr UNSCH IV ; Start 01/25/17 at 09:30; Stop 01/25/17 at 10:07; Status DC Ondansetron HCl (Zofran Inj) 4 mg Q6H PRN IVP NAUSEA OR VOMITING Last administered on 01/25/17 15:35; Start 01/25/17 at 09:30 Docusate Sodium (Colace) 100 mg BID PO ; Start 01/26/17 at 21:00 Zolpidem Tartrate (Ambien) 5 mg HS PRN PO SLEEP; Start 01/25/17 at 09:30 Bisacodyl (Dulcolax Supp) 10 mg DAILY PRN RECTAL CONSTIPATION; Start 01/25/17 at 09:30 Magnesium Hydroxide (Milk Of Magnesia Liq) 30 ml DAILY PRN PO MILD TO MODERATE CONSTIPATION; Start 01/25/17 at 09:30 Aspirin (Ecotrin Ec) 81 mg BID PO ; Start 01/25/17 at 21:00; Stop 01/25/17 at 21: 00; Status DC Orphenadrine Citrate (Norflex Cr) 100 mg Q12HR PO Last administered on 20:32; Start 01/25/17 at 21:00 Non-Formulary Medication 1 tab DAILY PO ; Start 01/26/17 at 09:00; Status UNV Morphine Sulfate (*morphine INJ PERIprocedure ONLY) 8 mg STK-MED ONCE .ROUTE Last administered on 01/25/17 09:51; Start 01/25/17 at 09:50; Stop 01/25/17 at 09: 51; Status DC Morphine Sulfate (*morphine INJ PERIprocedure ONLY) 8 mg STK-MED ONCE .ROUTE Last administered on 01/25/17 10:26; Start 01/25/17 at 10:25; Stop 01/25/17 at 10: 26; Status DC Famotidine (Pepcid) 20 mg BID PO Last administered on 01/26/17 07:58; Start 01/25/17 at 21:00 Enoxaparin Sodium (Lovenox Inj) 40 mg Q24H SQ ; Start 01/26/17 at 09:00; Status Cancel Multivitamins/ Minerals Therapeutic (Theragran M Tab) 1 tab DAILY PO Last administered on 01/26/17 07:58; Start 01/26/17 at 09:00 Rivaroxaban (Xarelto) 10 mg DAILY PO Last administered on 01/26/17 07:59; Start 01/26/17 at 09:00 Miscellaneous Information ALL NURSING DEPARTME... UNSCH PRN .XX SEE LABEL COMMENTS; Start 01/25/17 at 16:15; Stop 01/26/17 at 16:14 Cefazolin Sodium 1000 mg/Sodium Chloride 100 ml @ 200 mls/hr Q6H IV Last administered on 01/26/17 02:34; Start 01/25/17 at 21:30; Stop 01/26/17 at 03:59; Status DC Urinary Catheter: No Vascular Central Line Catheter: No A/P Problem List: (1) Status post total replacement of left hip ICD Code: Z96.642 - Presence of left artificial hip joint Status: Acute (2) Primary osteoarthritis of left hip ICD Code: M16.12 - Unilateral primary osteoarthritis, left hip (3) Hip pain, left ICD Code: M25.552 - Pain in left hip Status: Acute Assessment and Plan Patient is a 56-year-old female. He is status post left total hip arthroplasty today. By surgery pain control and DVT prophylaxis per them History of tubal ligation stable Osteoarthritis continue pain control Obesity weight last recommended DVT and GI prophylaxis A.m. labs will follow throughout the admission for any other issues that may arise Discharge Planning DC TO HOME TODAY Bjorn Strange DO Jan 26, 2017 12:14
[2017-01-26] MEDS ORDERED: ASPI81CH CHEW (13:58)
[2017-01-26 14:45] LABS: ANION GAP 5 MEQ/L (5-15); AST (GOT) 15 U/L (15-37); BICARBONATE 30.2 MEQ/L (21.0-32.0); BLOOD UREA NITROGEN 16 MG/DL (7-18); CHLORIDE 104 MEQ/L (98-107); GLOMERULAR FILTRATION RATE 83 ML/MIN (>89); MAGNESIUM 2.3 MG/DL (1.5-2.5); POTASSIUM 3.9 MEQ/L (3.5-5.1); SODIUM (NA) 139 MEQ/L (136-145)
[2017-01-26 14:54] LABS: ALKALINE PHOSPHATASE 53 U/L (45-117); ALT (GPT) 20 U/L (10-53); FREE T4 1.35 NG/DL (0.76-1.46); TOTAL BILIRUBIN ADULT 0.6 MG/DL (0.2-1.0)
[2017-01-26] MEDS ORDERED: DOCUSATE SODIUM 100 MG CAP PO SCH (21:00)
== END 2017-01-26 15:50 | disposition home or self-care (01) | DRG 470 ==
LOC: HSDI 05:20 → N06B 11:00
PROVIDERS: ADMIT Orthopaedic Surgery; ATTEND Orthopaedic Surgery
PROC: 0SRB04A Replacement of Left Hip Joint with Ceramic on Polyethylene Synthetic Substitute, Uncemented, Open Approach (ICD-10-PCS; principal; 2017-01-25 06:34)
DX: M16.12 Unilateral primary osteoarthritis, left hip (principal); E66.9 Obesity, unspecified; Z87.891 Personal history of nicotine dependence; Z68.38 Body mass index [BMI] 38.0-38.9, adult; Z88.6 Allergy status to analgesic agent
CPT/HCPCS: 73502; 80053; 83036; 83735; 84100; 84439; 84443; 85025; 86850; 86900; 86901; 94150; C1776; C9290; J0131; J0690; J1100; J1580; J1885; J2250; J2270; J2405; J2710; J3010; J7120; L1830